=== PATIENT | female | born 1990 | race Two or more races ===

== ENCOUNTER 2019-08-03 19:23 | Emergency (ER) | payer MEDICAID ==
[~2019-08-03] VITALS: Ht 167.6 cm; Wt 97.5 kg
[2019-08-03 19:31] VITALS: BP 157/98
--- NOTE | 2019-08-03 19:31 | NUR ---
ED Nurse Note: PT. AAOX4. AMBULATORY. WALKED IN TO ER FROM HOME. PT STATED SHE HAS FLU-LIKE SYMPTOMS X 2 WEEKS. DENIES RECENT TRAVEL. COUGH, CONGESTION AND SORETHROAT REPORTED BY THE PT.
[2019-08-03 19:41] VITALS: BP 153/97
--- NOTE | 2019-08-03 20:14 | Emergency Room Report ---
History of Present Illness General Chief Complaint: Flu Like Symptoms Source: Patient Present Illness HPI 28-year-old female with no significant past medical history here complaining of 2 weeks of cough and congestion and sore throat. Rates the pain 10 out of 10. Denies fever and chills, abdominal pain, nausea vomiting. Has been taking over- the-counter medication with minimal relief. Complains of wheezing at nighttime. Denies tobacco smoke or marijuana use. Denies chest pain, palpitation, headache and dizziness. Denies recent travel. Denies at this time. Allergies: Coded Allergies: No Known Allergies (Unverified , 08/03/19) Patient History Past Medical History: see triage record Past Surgical History: none Pertinent Family History: none Now: No Immunizations: UTD Reviewed Nursing Documentation: PMH: Agreed; PSxH: Agreed Nursing Documentation-PMH Past Medical History: No Stated History Review of Systems All Other Systems: negative except mentioned in HPI Physical Exam Vital Signs Date Time Temp Pulse Resp B/P (MAP) Pulse Ox O2 Delivery O2 Flow Rate FiO2 08/03/19 19:31 98.4 101 19 157/98 (117) 97 Room Air Sp02 EP Interpretation: reviewed, normal General Appearance: no apparent distress, alert, GCS 15, non-toxic Head: normocephalic, atraumatic Eyes: bilateral eye normal inspection, bilateral eye PERRL ENT: hearing grossly normal, no angioedema, normal voice, tonsillar swelling, pharyngeal erythema, tonsillar exudate Neck: full range of motion, supple, no meningismus, no bony tend, supple/symm/ no masses, other - Anterior cervical lymphadenopathy Respiratory: chest non-tender, lungs clear, normal breath sounds, no rhonchi, no wheezing, speaking full sentences Cardiovascular #1: regular rate, rhythm, no edema, no murmur Gastrointestinal: normal bowel sounds, non tender, soft, non-distended, no guarding, no rebound Rectal: deferred Genitourinary: no CVA tenderness Musculoskeletal: back normal, no calf tenderness Neurologic: alert, motor strength/tone normal, oriented x3, sensory intact, responsive, speech normal Psychiatric: judgement/insight normal, memory normal, mood/affect normal, no suicidal/homicidal ideation Skin: no rash Lymphatic: adenopathy - Anterior cervical lymphadenopathy Medical Decision Making PA Attestation All diagnoses and treatment plans were reviewed and discussed with my supervising physician Dr. Bartholomew Diagnostic Impression: Primary Impression: Pneumonitis ER Course 28-year-old female with no significant past medical history here complaining of 2 weeks of cough and congestion and sore throat. Rates the pain 10 out of 10. Denies fever and chills, abdominal pain, nausea vomiting. Has been taking over- the-counter medication with minimal relief. Complains of wheezing at nighttime. Denies tobacco smoke or marijuana use. Denies chest pain, palpitation, headache and dizziness. Denies recent travel. Denies at this time. Ddx considered but are not limited to: bronchitis, PNA, URI viral, bacterial bronchitis, pneumonitis Vital signs: are WNL, pt. is afebrile H&PE are most consistent with: Pneumonitis ORDERS: Chest x-ray, Augmentin, albuterol, prednisone, guaifenesin ED INTERVENTIONS: None required at this time. DISCHARGE: At this time pt. is stable for d/c to home. Will provide printed patient care instructions, and any necessary prescriptions. Care plan and follow up instructions have been discussed with the patient prior to discharge. Take medication as directed, follow-up primary care provider, increase oral hydration, if worsening symptoms return to the emergency room Chest X-Ray Diagnostic Results Chest X-Ray Diagnostic Results : Chest X-Ray Ordered: Yes # of Views/Limited/Complete: 1 View Indication: Other - Cough EP Interpretation: Yes EDMUNDO Xray: Interpretation reviewed, by supervising MD, and agrees with findings. Interpretation: no consolidation, no effusion, no pneumothorax Impression: No acute disease Electronically Signed by: Gato Lundberg PA-C Last Vital Signs Date Time Temp Pulse Resp B/P (MAP) Pulse Ox O2 Delivery O2 Flow Rate FiO2 08/03/19 19:31 98.4 101 19 157/98 (117) 97 Room Air Disposition: HOME, SELF-CARE Condition: Stable Scripts Prednisone* (PREDNISONE*) 20 Mg Tablet 40 MG ORAL DAILY for 5 Days, #10 TAB Prov: Gato Darby 08/03/19 Guaifenesin* (GUAIFENESIN*) 100 Mg/5 Ml Liquid 5 ML ORAL Q8H, #120 ML 0 Refills Prov: Gato Darby 08/03/19 Albuterol Sulfate (VENTOLIN HFA) 18 Gm Hfa.aer.ad 2 PUFFS INH EVERY 6 HOURS, #18 GM 0 Refills Prov: Gato Darby 08/03/19 Amoxicillin/Potassium Clav 875-125* (AUGMENTIN 875-125 TABLET*) 1 Each Tablet 1 TAB ORAL TWICE A DAY for 10 Days, #20 TAB Prov: Gato Darby 08/03/19 Patient Instructions: Pneumonitis Additional Instructions: Take medication as directed, follow-up with your primary care provider, increase oral hydration, if worsening symptoms return to the emergency room Gato Darby Aug 03, 2019 20:14
[2019-08-03 20:20] VITALS: BP 148/78
--- NOTE | 2019-08-03 20:20 | NUR ---
ER DISCHARGE NOTE: Patient is cleared to be discharged per ERMD, pt is aox4, on room air, with stable vital signs. pt was given dc and prescription instructions, pt was able to verbalize understanding, pt id band removed. pt is able to ambulate with steady gait. pt took all belongings.
[2019-08-03] MEDS ORDERED: AUGMENTIN 875-1 EAC1 ORAL (20:21)
[2019-08-03] MEDS ORDERED: PREDNISONE20 MG ORAL (20:21)
[2019-08-03] MEDS ORDERED: VENTOLIN HFA18 GM INH (20:21)
[2019-08-03] MEDS ORDERED: GUAIFENESI100 MG/5 M ORAL (20:21)
--- NOTE | 2019-08-03 21:06 | Diagnostic Imaging Report ---
EXAM: XR Chest, 1 View CLINICAL HISTORY: COUGH TECHNIQUE: Frontal view of the chest. COMPARISON: No relevant prior studies available. FINDINGS: The cardiac and mediastinal silhouettes are unremarkable. Negative for parenchymal consolidation, pneumothorax or pleural fluid collections.
== END 2019-08-03 20:20 | disposition home or self-care (01) ==
LOC: EMR 20:18
DX: J18.9 Pneumonia, unspecified organism (principal)
CPT/HCPCS: 71045; Z7502; 99283